=== PATIENT | female | born 1995 | race Two or more races ===

== ENCOUNTER 2024-09-30 17:40 | Emergency (ER) | payer OTHER ==
[~2024-09-30] VITALS: Ht 165.1 cm; Wt 97.5 kg
[2024-09-30 21:23] VITALS: BP 132/70; TEMP 98; O2SAT 98
== END 2024-09-30 21:23 ==
LOC: ER 17:44
DX: S01.112A Laceration without foreign body of left eyelid and periocular area, initial encounter (principal); R51.9 Headache, unspecified; Y04.0XXA Assault by unarmed brawl or fight, initial encounter; Y93.89 Activity, other specified; Y92.89 Other specified places as the place of occurrence of the external cause; Y99.8 Other external cause status
CPT/HCPCS: 70450-TC; 70486-TC

== ENCOUNTER 2024-10-07 16:50 | Emergency (ER) | payer SELFPAY ==
[~2024-10-07] VITALS: Ht 165.1 cm; Wt 97.5 kg
[2024-10-07 16:56] VITALS: BP 113/63; TEMP 98.5
[2024-10-07 17:48] VITALS: O2SAT 99
== END 2024-10-07 17:49 | disposition home or self-care (01) ==
LOC: ER 16:50
DX: S01.112D Laceration without foreign body of left eyelid and periocular area, subsequent encounter (principal); Z48.02 Encounter for removal of sutures; X58.XXXD Exposure to other specified factors, subsequent encounter